=== PATIENT | female | born 1960 | race Caucasian/White ===

== ENCOUNTER → 2023-03-16 08:24 | Outpatient (CLI) | payer MEDICARE, SELFPAY ==
--- NOTE | ~2023-03-16 | MR_ITS ---
EXAMINATION: MR shoulder RT wo con DATE: 03/16/2023 09:04 INDICATION: Right shoulder pain TECHNIQUE: Magnetic resonance imaging (MRI) of the right shoulder was performed without intravenous c ontrast. Sequences included axial PD-weighted FS FSE, coronal oblique PD-weighted FS FSE, coronal obl ique T2-weighted FS FSE, sagittal PD-weighted FS FSE, and sagittal T1-weighted SE. COMPARISON: None. FINDINGS: Coracoacromial arch: The acromion undersurface is curved in morphology (type II). The coracoacromial ligament is normal. M oderate acromioclavicular osteoarthritis. Rotator cuff: Moderate supraspinatus tendinopathy with tear measuring 8 mm AP and 10 mm medial collateral at the cr itical zone of the tendon with lateral tear margin position 1 cm from the superior facet footplate. M ild to moderate infraspinatus tendinopathy with small intrasubstance ganglion cyst within the deep po rtion of the tendon approximately 1.5 cm from the middle facet footplate. The teres minor tendon is n ormal. Moderate subscapularis tendinopathy with small intrasubstance split tear extending 1 cm medial ly from the lateral rim of the lesser tuberosity footplate. Normal rotator cuff muscle bulk and signa l. Biceps tendon, glenoid labrum and glenohumeral cartilage: Long head of the biceps tendon is normal. There is a tear of the inferior labrum extending from the 4 :30 position anteriorly to the 7:00 position posteriorly. Mild glenohumeral osteoarthritis with mild partial-thickness cartilage loss with smooth chondral surface at the central to cephalad aspect of th e glenoid and along the cephalad and inferomedial aspects of the humeral head. Fluid: Small glenohumeral joint effusion which likely contributes to moderate amount fluid in the subcoracoi d and subacromial/subdeltoid bursae via communication through the full-thickness supraspinatus tendon tear. No loose osteochondral bodies. Bones: Bone alignment is normal. No fracture or pathologic marrow replacing process. IMPRESSION: 1. 10 x 8 mm full-thickness tear at the critical zone of the distal supraspinatus tendon. 2. Moderate subscapularis and infraspinatus tendinopathy with small intrasubstance split tear at the insertion of the former and small intrasubstance ganglion cyst in the latter. 3. Mild glenohumeral osteoarthritis with tear of the inferior glenoid labrum. 4. Moderate acromioclavicular osteoarthritis. 5. Moderate amount fluid in the subcoracoid and subacromial/subdeltoid bursae likely reflecting exten gisselle of fluid from a small glenohumeral joint effusion through the full-thickness rotator cuff tear. Reviewed, dictated and finalized at location A. IMPRESSION: 1. 10 x 8 mm full-thickness tear at the critical zone of the distal supraspinat us tendon. 2. Moderate subscapularis and infraspinatus tendinopathy with small intrasubsta nce split tear at the insertion of the former and small intrasubstance ganglion cyst in the latter. 3. Mild glenohumeral osteoarthritis with tear of the inferior glenoid labrum. 4. Moderate acromioclavicular osteoarthritis. 5. Moderate amount fluid in the subcoracoid and subacromial/subdeltoid bursae l ikely reflecting extension of fluid from a small glenohumeral joint effusion th rough the full-thickness rotator cuff tear.
== END ==
PROVIDERS: PCP Family Medicine
DX: S46.011A Strain of muscle(s) and tendon(s) of the rotator cuff of right shoulder, initial encounter (principal); M67.411 Ganglion, right shoulder; M19.011 Primary osteoarthritis, right shoulder; M25.411 Effusion, right shoulder; M25.511 Pain in right shoulder; G89.29 Other chronic pain
CPT/HCPCS: 73221